=== PATIENT | male | born 1995 | race Two or more races ===

== ENCOUNTER 2018-12-15 06:29 | Emergency (ER) | payer OTHER ==
[~2018-12-15] VITALS: Ht 177.8 cm; Wt 77.7 kg
[2018-12-15] MEDS ORDERED: ACETAMINOPHEN TAB 650MG DOSE (2X325MG) PO ONE (07:00)
--- NOTE | 2018-12-15 07:36 | REPVR ---
EXAM: CT Cervical Spine Without Contrast EXAM DATE/TIME: 12/15/2018 6:40 AM CLINICAL HISTORY: 23 years old, male; Injury or trauma; Fall; Initial encounter; Blunt trauma; Additional info: Tr TECHNIQUE: Axial computed tomography images of the cervical spine without intravenous contrast. All CT scans at this facility use at least one of these dose optimization techniques: automated exposure control; mA and/or kV adjustment per patient size (includes targeted exams where dose is matched to clinical indication); or iterative reconstruction. Coronal and sagittal reformatted images were created and reviewed. COMPARISON: No relevant prior studies available. FINDINGS: Vertebrae: There is straightening of the normal cervical lordosis. This may be positional or secondary to muscle spasm. The alignment is otherwise preserved. No spondylolisthesis. There is preservation of the vertebral body height and intervertebral disc spaces. Facet joints are intact. Craniocervical junction appears appropriate. No acute fracture. Discs/Spinal canal/Neural foramina: No acute findings. No spinal canal stenosis. No neural foraminal narrowing. Soft tissues: Paraspinal soft tissues are unremarkable. No prevertebral swelling. Lungs: Lung apices are clear. IMPRESSION: 1. Straightening of the normal cervical lordosis. 2. No acute fracture, subluxation or dislocation. Electronically signed by: Ned Richmond On 12/15/2018 07:35:57 AM
--- NOTE | 2018-12-15 07:49 | REPVR ---
EXAM: CT Head Without Contrast EXAM DATE/TIME: 12/15/2018 6:40 AM CLINICAL HISTORY: 23 years old, male; Injury or trauma; Fall; Initial encounter; Blunt trauma (contusions or hematomas); Consciousness not specified; Additional info: Tr TECHNIQUE: Axial computed tomography images of the head/brain without contrast. All CT scans at this facility use at least one of these dose optimization techniques: automated exposure control; mA and/or kV adjustment per patient size (includes targeted exams where dose is matched to clinical indication); or iterative reconstruction. COMPARISON: No relevant prior studies available. FINDINGS: Brain: The brain parenchyma is symmetric. There is no evidence of intracranial hemorrhage or mass effect. There is preservation of the bauman-white matter differentiation. Ventricles: Normal. No ventriculomegaly. Bones/joints: Unremarkable. No acute fracture. Sinuses: Visualized sinuses are unremarkable. No acute sinusitis. Mastoid air cells: Visualized mastoid air cells are unremarkable. No mastoid effusion. Soft tissues: Unremarkable. IMPRESSION: There is no evidence of intracranial hemorrhage or acute intracranial abnormality. Electronically signed by: Ned Richmond On 12/15/2018 07:49:12 AM
[2018-12-15 08:27] VITALS: BP 106/73
== END 2018-12-15 08:25 | disposition home or self-care (01) ==
LOC: M ED 06:29
DX: S09.90XA Unspecified injury of head, initial encounter (principal); W00.0XXA Fall on same level due to ice and snow, initial encounter; Y92.098 Other place in other non-institutional residence as the place of occurrence of the external cause